=== PATIENT | female | born 1995 | race Caucasian/White ===

== ENCOUNTER → 2017-07-02 | Outpatient (CLI) | payer OTHER ==
[~2017-07-02] MED LIST: INFL1INJ56 IM; NITR100C4 PO; Prenatal vitamin
== END ==
LOC: HPND 09:16
PROVIDERS: ATTEND Family Medicine
DX: Z34.90 Encounter for supervision of normal pregnancy, unspecified, unspecified trimester (principal)
CPT/HCPCS: 76801

== ENCOUNTER → 2017-08-06 | Outpatient (CLI) | payer OTHER ==
[~2017-08-06] MED LIST changes: -INFL1INJ56 IM; -NITR100C4 PO
== END ==
LOC: HPND 09:05
PROVIDERS: ATTEND Family Medicine
DX: Z36.9 Encounter for antenatal screening, unspecified (principal)
CPT/HCPCS: 76805

== ENCOUNTER 2017-12-20 08:58 | Inpatient (IN) | payer OTHER, MEDICAID ==
[2017-12-20] VITALS (52 sets, daily range): BP systolic 85–136; BP diastolic 53–86; PULSE 69–126; RESP 16; TEMP 98.4
[~2017-12-20] VITALS: Ht 149.9 cm; Wt 62.0 kg
[~2017-12-20 08:58] MED LIST changes: +MACR100C2 PO
--- NOTE | 2017-12-20 09:37 | PD ---
HPI Chief Complaint contractions Date Seen: Dec 20, 2017 Time Seen: 09:20 Travel History International Travel<30 Days: No Contact w/Intl Traveler<30Days: No History of Present Illness HPI 22 y/o G1 at 38/1 weeks presents with contractions. Pt states that she started having contractions this morning around 5 am. Denies any gush of fluids, vaginal bleeding. Endorses good movement. Follows in clinic with Dr. Naomie Ozuna. No problems during this . Otherwise, denies any other symptoms, including headache, blurry vision, chest pain, SOB, dysuria, leg pain/swelling. Weeks Gestation: 38 Para: 0 : 1 History Past Medical History Medical History: Denies Significant Hx Obstetric History Obstetric History Past Surgical History Narrative Surgical Appendectomy Family History Family History: Negative Social History Alcohol Use: No Tobacco Use: No Substance Abuse: No Allergies-Medications (Allergen,Severity, Reaction): Coded Allergies: No Known Allergies (Unverified Adverse Reaction, Unknown, 11/03/17) Home Meds Reported Medications [ vitamin] No Conflict Check 06/19/17 Discontinued Scripts Nitrofurantoin Monohydrate Macrocrystals (Macrobid) 100 Mg Cap, 100 MG PO BID for Infection, #14 CAP 0 Refills Prov:Naomie Ozuna MD 10/22/17 Review of Systems General / Constitutional: Weight Gain, No: Fever, Weight Loss, Chills, Other Eyes: No: Diploplia, Blurred Vision, Visual changes, Pain, Photophobia HENT: No: Headaches, Vertigo, Lightheadedness Cardiovascular: No: Irregular Rhythm, Chest Pain or Discomfort, Palpitations, Tachycardia, Syncope, Varicosities, Edema, Cyanosis Respiratory: No: Cough, Short of Breath, Other Gastrointestinal: No: Nausea, Vomiting, Diarrhea Genitourinary: Pelvic Pain, No: Urgency, Frequency, Dysuria, Decreased Urinary Output, Oliguria Musculoskeletal: No: Limited ROM, Weakness, Cramping, Edema, Pain Skin: No Rash, No Itching, No Dryness, No Lumps, No Change in Pigmentation, No Change in Nails, No Alopecia, No Lesions Neurologic: No: Weakness, Dizziness, Syncope, Focal Abnormalities, Coordination Problem, Headache, Slurred Speech, Seizures Psychiatric: No: Depression, Suicidal Ideations, Homicidal Ideation Endocrine: No: Heat Intolerance, Cold Intolerance, Polydipsia, Polyuria, Other Physical Exam Narrative GENERAL: Well-nourished, well-developed patient. SKIN: Warm and dry. HEAD: Normocephalic and atraumatic. EYES: No scleral icterus. No injection or drainage. ENT: No nasal drainage noted. Mucous membranes pink. Airway patent. NECK: Supple, trachea midline. No JVD. CARDIOVASCULAR: Regular rate and rhythm without murmurs, gallops, or rubs. RESPIRATORY: Breath sounds equal bilaterally. No accessory muscle use. ABDOMEN/GI: Abdomen soft, non-tender, bowel sounds present, no rebound, no guarding Gravid to 38 weeks size GENITOURINARY: External Genitalia: intact and normal in appearance Cervix: soft,stretchy Dilatation: 4-5 Effacement: 70 Station: -1 Presentation: vertex Membranes: bulging Uterine Contractions: q3-5 minutes FHT's: Category: 1 Baseline: 140 Reactive: yes Variability: moderate Decels: none EXTREMITIES: No cyanosis or edema. BACK: Nontender without obvious deformity. No CVA tenderness. NEUROLOGICAL: Awake and alert. Motor and sensory grossly within normal limits. Five out of 5 muscle strength in all muscle groups. Normal speech. Data Data Vital Signs Reviewed: Yes Group B Strep: Negative MDM Medical Record Reviewed: Yes Interpretation(s) 22 y/o G1 at 38/1 weeks presents with contractions Category 1 FHT with contractions every 3-5 minutes GBS negative Cervical exam: 4-5/70/-1 -Admit to labor and delivery -Continuous FHT -Expectant management -Plan for vaginal delivery Diagnosis Diagnosis: Primary Impression: Qualified Codes: Z3A.38 - 38 weeks gestation of Dale Chang MD Dec 20, 2017 09:37
[2017-12-20] MEDS ORDERED: LACTATED RINGER'S 1000 ML INJ 1,000 ML IV SCH (09:39)
[2017-12-20] MEDS ORDERED: LACTATED RINGER'S 1000 ML INJ 1,000 ML IV PRN (09:39)
[2017-12-20] MEDS ORDERED: LIDOCAINE HCL 1% 50 ML VIAL INFIL PRN (09:45)
[2017-12-20] MEDS ORDERED: MINERAL OIL 10 ML VIAL TOPICAL PRN (09:45)
[2017-12-20] MEDS ORDERED: CITRIC ACID-SODIUM CITRATE LIQ 30 ML UDC PO SCH (09:45)
[2017-12-20] MEDS ORDERED: ONDANSETRON HCL 4 MG/2 ML VIAL IV PUSH PRN (09:45)
[2017-12-20] MEDS ORDERED: SODIUM CHLORID 0.9% 500 ML INJ 500 ML IV PRN (09:45)
[2017-12-20] MEDS ORDERED: OXYTOCIN 30 UNITS-500ML PREMIX 500 ML IV ONE (09:45)
[2017-12-20] MEDS ORDERED: LIDOCAINE HCL 1% 50 ML VIAL I-DERMAL PRN (09:45)
--- NOTE | 2017-12-20 09:45 | HHI.HP ---
History & Physical H&P HPI Chief Complaint contractions Date Seen: Dec 20, 2017 Time Seen: 09:20 Travel History International Travel<30 Days: No Contact w/Intl Traveler<30Days: No History of Present Illness HPI 22 y/o G1 at 38/1 weeks presents with contractions. Pt states that she started having contractions this morning around 5 am. Denies any gush of fluids, vaginal bleeding. Endorses good movement. Follows in clinic with Dr. Naomie Ozuna. No problems during this . Otherwise, denies any other symptoms, including headache, blurry vision, chest pain, SOB, dysuria, leg pain/swelling. Weeks Gestation: 38 Para: 0 : 1 History (Limited) History Past Medical History Medical History: Denies Significant Hx Obstetric History Obstetric History Past Surgical History Narrative Surgical Appendectomy Family History Family History: Negative Social History Alcohol Use: No Tobacco Use: No Substance Abuse: No Allergies-Medications Allergies-Medications (Allergen,Severity, Reaction): Coded Allergies: No Known Allergies (Unverified Adverse Reaction, Unknown, 11/03/17) Home Meds Reported Medications [ vitamin] No Conflict Check 06/19/17 Discontinued Scripts Nitrofurantoin Monohydrate Macrocrystals (Macrobid) 100 Mg Cap, 100 MG PO BID for Infection, #14 CAP 0 Refills Prov:Naomie Ozuna MD 10/22/17 ROS Review of Systems General / Constitutional: Weight Gain, No: Fever, Weight Loss, Chills, Other Eyes: No: Diploplia, Blurred Vision, Visual changes, Pain, Photophobia HENT: No: Headaches, Vertigo, Lightheadedness Cardiovascular: No: Irregular Rhythm, Chest Pain or Discomfort, Palpitations, Tachycardia, Syncope, Varicosities, Edema, Cyanosis Respiratory: No: Cough, Short of Breath, Other Gastrointestinal: No: Nausea, Vomiting, Diarrhea Genitourinary: Pelvic Pain, No: Urgency, Frequency, Dysuria, Decreased Urinary Output, Oliguria Musculoskeletal: No: Limited ROM, Weakness, Cramping, Edema, Pain Skin: No Rash, No Itching, No Dryness, No Lumps, No Change in Pigmentation, No Change in Nails, No Alopecia, No Lesions Neurologic: No: Weakness, Dizziness, Syncope, Focal Abnormalities, Coordination Problem, Headache, Slurred Speech, Seizures Psychiatric: No: Depression, Suicidal Ideations, Homicidal Ideation Endocrine: No: Heat Intolerance, Cold Intolerance, Polydipsia, Polyuria, Other Physical Exam Physical Exam Narrative GENERAL: Well-nourished, well-developed patient. SKIN: Warm and dry. HEAD: Normocephalic and atraumatic. EYES: No scleral icterus. No injection or drainage. ENT: No nasal drainage noted. Mucous membranes pink. Airway patent. NECK: Supple, trachea midline. No JVD. CARDIOVASCULAR: Regular rate and rhythm without murmurs, gallops, or rubs. RESPIRATORY: Breath sounds equal bilaterally. No accessory muscle use. ABDOMEN/GI: Abdomen soft, non-tender, bowel sounds present, no rebound, no guarding Gravid to 38 weeks size GENITOURINARY: External Genitalia: intact and normal in appearance Cervix: soft,stretchy Dilatation: 4-5 Effacement: 70 Station: -1 Presentation: vertex Membranes: bulging Uterine Contractions: q3-5 minutes FHT's: Category: 1 Baseline: 140 Reactive: yes Variability: moderate Decels: none EXTREMITIES: No cyanosis or edema. BACK: Nontender without obvious deformity. No CVA tenderness. NEUROLOGICAL: Awake and alert. Motor and sensory grossly within normal limits. Five out of 5 muscle strength in all muscle groups. Normal speech. Data Data Data Vital Signs Reviewed: Yes Group B Strep: Negative MDM MDM Medical Record Reviewed: Yes Interpretation(s) 22 y/o G1 at 38/1 weeks presents with contractions Category 1 FHT with contractions every 3-5 minutes GBS negative Cervical exam: 4-5/70/-1 -Admit to labor and delivery -Continuous FHT -Expectant management -Plan for vaginal delivery Diagnosis Diagnosis: Primary Impression: Qualified Codes: Z3A.38 - 38 weeks gestation of Dale Chang MD Dec 20, 2017 09:45
[2017-12-20] MEDS ORDERED: SODIUM CHLOR 0.9% 1000 ML INJ 1,000 ML IV PRN (09:59)
[2017-12-20] MEDS ORDERED: fentaNYL 2MCG-BUPIV 0.125% INJ 100 ML ONE (10:45)
--- NOTE | 2017-12-20 10:46 | PD.LABORPN ---
Subjective Subjective Patient examined at bedside. She is an OB continuity patient, EDC 01/02/2017, at 38 and 1/7 weeks today. She has felt contractions intermittently since last night, with contractions every five minutes since around 5AM today. She wants epidural, but wants to wait a while. She presented with dilation 4-5cm, bulging back, Cat 1 tracing. Pain currently 5/10 in severity, receiving IV fentanyl. GBS negative on 12/15/2017. Plan: in labor. Category 1 tracing reassuring. CTX not appearing adequate. Will AROM and initiate Pitocin as needed for adequate contraction pattern pending lab processing. Update 1045AM: AROM with Sarina labor nurse assisting, 6 CM dilation on exam. Light meconium stain. KRISH Nunn Objective Objective Pelvic Exam: Cervix: 6/80/-1, CTX q 2-3 min FHT's: Category: 1 Baseline: 140s Reactive: y Variability: mod Decels: no Weeks Gestation: 38 Naomie Ozuna MD Dec 20, 2017 10:46
[2017-12-20 10:53] LABS: AUTOMATED NEUTROPHIL # 9.6 TH/MM3 (1.8-7.7); BASOPHIL % 0.3 % (0.0-2.0); EOSINOPHIL % 0.4 % (0.0-4.0); HEMOGLOBIN 13.5 GM/DL (11.6-15.3); LYMPH % 9.1 % (9.0-44.0); MEAN CELL VOLUME 92.7 FL (80.0-100.0); MEAN CORPUSCULAR HEMOGLOBIN 32.2 PG (27.0-34.0); MEAN CORPUSCULAR HGB CONC 34.7 % (32.0-36.0); MEAN PLATELET VOLUME 8.6 FL (7.0-11.0); MONO % 6.5 % (0.0-8.0); MONOCYTE # 0.7 TH/MM3 (0-0.9); NEUT % 83.7 % (16.0-70.0); PLATELET COUNT 187 TH/MM3 (150-450); RED BLOOD COUNT 4.21 MIL/MM3 (4.00-5.30); RED CELL DISTRIBUTION WIDTH 13.4 % (11.6-17.2); WHITE BLOOD COUNT 11.4 TH/MM3 (4.0-11.0)
[2017-12-20] MEDS ORDERED: ePHEDrine/NS 25 MG/5 ML SYRINGE ONE (10:53)
[2017-12-20 11:01] LABS: BILIRUBIN, URINE NEG (NEG); BLOOD, URINE MOD (NEG); GLUCOSE,URINE NEG (NEG); KETONE, URINE NEG (NEG); MUCUS URINE FEW /lpf (OCC); NITRITE,URINE NEG (NEG); PH, URINE 7.5 (5.0-8.5); SQUAMOUS EPITHELIAL CELL URINE 4 /hpf (0-5); URINE COLOR YELLOW (YELLW/STRAW); URINE LEUKOCYTE ESTERASE SMALL (NEG)
[2017-12-20] MEDS ORDERED: LIDOCAINE HCL 1% 20 ML VIAL ONE ×2 (13:55→15:18)
--- NOTE | 2017-12-20 14:23 | PD.LABORPN ---
Subjective Subjective Patient examined at bedside. Epidural controlling pain well. Cervical exam now showing 9cm/100%/-1. Category 1 tracing. GBS negative on 12/15/2017. Repositioned to left lateral decubitus position, tolerating well. VS wnl. Plan: in labor, now in active phase. Continue expectant management of vaginal delivery. AROM @ 1036 with light meconium stain. Category 1 tracing reassuring. CTX adequate. DW Sarina, labor nurse Objective Vital Signs Vital Signs Date Time Temp Pulse Resp B/P (MAP) Pulse Ox O2 Delivery O2 Flow Rate FiO2 12/20/17 13:38 16 12/20/17 13:35 73 12/20/17 13:30 75 111/73 (86) 12/20/17 13:20 75 12/20/17 13:15 69 12/20/17 13:15 111/72 (85) 12/20/17 13:10 72 12/20/17 13:05 77 12/20/17 13:00 75 109/68 (82) 12/20/17 12:55 75 12/20/17 12:50 77 12/20/17 12:45 82 106/67 (80) 12/20/17 12:40 77 12/20/17 12:35 72 12/20/17 12:30 86 110/75 (87) 12/20/17 12:20 80 12/20/17 12:15 85 116/72 (87) 12/20/17 12:10 79 12/20/17 12:05 92 12/20/17 12:00 82 116/72 (87) 12/20/17 11:50 82 12/20/17 11:45 84 12/20/17 11:45 119/71 (87) 12/20/17 11:40 118/81 (93) 12/20/17 11:40 87 12/20/17 11:35 80 113/73 (86) 12/20/17 11:30 83 123/70 (87) 12/20/17 11:28 16 12/20/17 11:28 98.4 12/20/17 11:25 121/74 (90) 12/20/17 11:25 79 12/20/17 11:22 89 128/75 (92) 12/20/17 11:21 93 131/65 (87) 12/20/17 11:20 91 12/20/17 11:17 95 136/85 (102) 12/20/17 10:30 16 Objective Pelvic Exam: Cervix: 9/100/0, CTX q 2-3 min FHT's: Category: 1 Baseline: 120s Reactive: y Variability: mod Decels: no Weeks Gestation: 38 Assessment/Plan Problem List: (1) with 38 completed weeks gestation ICD Codes: Z3A.38 - 38 weeks gestation of Naomie Ozuna MD Dec 20, 2017 14:23
[2017-12-20] MEDS ORDERED: BENZOCAINE 20% TOPICAL SPRAY 60 ML CAN TOPICAL PRN (16:00)
[2017-12-20] MEDS ORDERED: oxyCODONE/ACETAMINOPHEN 5 MG/325 MG TAB PO PRN ×2 (16:00)
[2017-12-20] MEDS ORDERED: ONDANSETRON ODT 4 MG TAB PO PRN (16:00)
[2017-12-20] MEDS ORDERED: SODIUM CHLORIDE 0.9% FLUSH 10 ML FLUSH IV FLUSH PRN (16:00)
[2017-12-20] MEDS ORDERED: OXYTOCIN 30 UNITS-500ML PREMIX 500 ML IV SCH (16:00)
[2017-12-20] MEDS ORDERED: DIPHTH/TETANUS/ACEL PERTUSSIS (BOOSTER) 0.5 ML VIAL/PFS IM ONE (16:00)
[2017-12-20] MEDS ORDERED: WITCH HAZEL 50%/GLYCERIN 12.5% 40 PAD JAR TOPICAL PRN (16:00)
[2017-12-20] MEDS ORDERED: ACETAMINOPHEN 325 MG TAB PO PRN (16:00)
[2017-12-20] MEDS ORDERED: MEASLES, MUMPS, RUBELLA VACCINE 0.5 ML VIAL SQ ONE (16:00)
[2017-12-20] MEDS ORDERED: ALUMINUM/MAGNESIUM/SIMETH 30 ML CUP PO PRN (16:00)
[2017-12-20] MEDS ORDERED: ZOLPIDEM TARTRATE 5 MG TAB PO PRN (16:00)
[2017-12-20] MEDS ORDERED: DOCUSATE SODIUM 50 MG/SENNA 8.6 MG TAB PO PRN (16:00)
--- NOTE | 2017-12-20 16:10 | PD.OB.DELI ---
Weeks gestation: 38 Pt started active labor?: Yes Active labor start date: Dec 20, 2017 Active labor start time: 11:30 Medical induction of labor?: No Artificial rupture of membrane: Yes Artificial ROM date: Dec 20, 2017 Artifical ROM time: 10:36 Anesthesia: Epidural Episiotomy: None Vaginal Delivery: Normal, Spontaneous Presentation: Occiput anterior Nuchal Cord: None Delayed cord clamping (45 sec): Yes Infant: Male Delivery date: Dec 20, 2017 Delivery time: 15:16 One Minute : 8 Five Minute : 9 Weight: delayed Placenta: Spontaneous delivery Laceration: Vaginal laceration, Perineal laceration, 2 deg Repair: Chromic interrupted, Chromic running Estimated blood loss: 250 Additional Information Patient is a 22 female who delivered by Normal spontaneous vaginal delivery , of live male intact, position CASSY over intact perineum with epidural anesthesia. No nuchal cord. Light meconium noted at AROM. Suction of infant at perineum and infant handed over to nursery staff after delayed cord clamping. Spontaneous delivery of placenta with 3-vessel cord within 15 minutes. Laceration of 2nd,degree vaginal and chacorta-urethral locations repaired using chromic suture. Estimated blood loss 250cc. Infant and mother doing well. Delayed weighing of due to [id number] initiative. Attending Dr. Nunn was present for entire delivery. Naomie Ozuna MD Dec 20, 2017 16:10
[2017-12-21] MEDS: IBUPROFEN 800 MG TAB PO PRN ×3 (01:43→17:54)
[2017-12-21 07:48] VITALS: BP 109/62; PULSE 83; RESP 16; TEMP 98.1
[2017-12-21] MEDS: SODIUM CHLORIDE 0.9% FLUSH 10 ML FLUSH IV FLUSH SCH ×2 (09:06→21:00)
--- NOTE | 2017-12-21 09:21 | HHI.OB ---
Subjective Post Day: 1 Remarks day #1 AFVSS overnight. Decreased lochia. Denies dysuria. No breast tenderness. She is feeding the baby via bottle. Appetite good. No nausea or vomiting. Ambulating well. Denies calf pain or shortness of breath. Otherwise, she is doing well this morning and has no other complaints. Objective Vitals/I&O Vital Signs Date Time Temp Pulse Resp B/P (MAP) Pulse Ox O2 Delivery O2 Flow Rate FiO2 12/21/17 07:48 98.1 83 16 109/62 (78) 12/20/17 16:45 95 110/57 (74) 12/20/17 16:40 16 12/20/17 16:30 101 85/56 (66) 12/20/17 16:00 126 85/56 (66) 12/20/17 15:55 16 12/20/17 15:45 110 109/73 (85) 12/20/17 15:40 104 113/53 (73) 12/20/17 15:30 104 115/71 (86) 12/20/17 15:29 105 116/68 (84) 12/20/17 15:00 16 12/20/17 14:47 104 112/86 (95) 12/20/17 14:25 94 12/20/17 14:20 83 12/20/17 14:15 83 110/73 (85) 12/20/17 14:10 77 12/20/17 14:05 78 12/20/17 14:00 76 105/67 (80) 12/20/17 13:55 74 12/20/17 13:50 83 12/20/17 13:46 74 119/73 (88) 12/20/17 13:45 77 12/20/17 13:38 16 12/20/17 13:35 73 12/20/17 13:30 75 111/73 (86) 12/20/17 13:20 75 12/20/17 13:15 69 12/20/17 13:15 111/72 (85) 12/20/17 13:10 72 12/20/17 13:05 77 12/20/17 13:00 75 109/68 (82) 12/20/17 12:55 75 12/20/17 12:50 77 12/20/17 12:45 82 106/67 (80) 12/20/17 12:40 77 12/20/17 12:35 72 12/20/17 12:30 86 110/75 (87) 12/20/17 12:20 80 12/20/17 12:15 85 116/72 (87) 12/20/17 12:10 79 12/20/17 12:05 92 12/20/17 12:00 82 116/72 (87) 12/20/17 11:50 82 12/20/17 11:45 84 12/20/17 11:45 119/71 (87) 12/20/17 11:40 118/81 (93) 12/20/17 11:40 87 12/20/17 11:35 80 113/73 (86) 12/20/17 11:30 83 123/70 (87) 12/20/17 11:28 16 12/20/17 11:28 98.4 12/20/17 11:25 121/74 (90) 12/20/17 11:25 79 12/20/17 11:22 89 128/75 (92) 12/20/17 11:21 93 131/65 (87) 12/20/17 11:20 91 12/20/17 11:17 95 136/85 (102) 12/20/17 10:30 16 Objective Remarks GENERAL: Well-nourished, well-developed patient. CARDIOVASCULAR: Regular rate and rhythm without murmurs, gallops, or rubs. RESPIRATORY: Breath sounds equal bilaterally. No accessory muscle use. ABDOMEN/GI: Abdomen soft, non-tender. Fundus: Firm, non-tender at umbilicus. GENITOURINARY: Light to moderate bleeding. EXTREMITIES: No cyanosis or edema, non-tender, without signs of DVT. Medications and IVs Current Medications Medications (Trade) Dose Ordered Sig/Nick Route Start Time Stop Time Status Last Admin (NS Flush) 2 ml BID IV FLUSH 12/20/17 21:00 12/21/17 09:06 (NS Flush) 2 ml UNSCH PRN IV FLUSH 12/20/17 16:00 (Tylenol) 650 mg Q4H PRN PO 12/20/17 16:00 (Motrin) 800 mg Q8H PRN PO 12/20/17 16:00 12/21/17 09:07 (Percocet 5-325 Mg) 1 tab Q4H PRN PO 12/20/17 16:00 (Percocet 5-325 Mg) 2 tab Q4H PRN PO 12/20/17 16:00 (Americaine 20% Top Spr) 1 spray Q4H PRN TOPICAL 12/20/17 16:00 (Tucks Pads) 1 applic QID PRN TOPICAL 12/20/17 16:00 12/21/17 09:07 (Sophia-Colace) 2 tab Q12H PRN PO 12/20/17 16:00 (Ambien) 5 mg HS PRN PO 12/20/17 16:00 (Mag-Al Plus Susp Liq) 15 ml Q8H PRN PO 12/20/17 16:00 (Zofran Odt) 4 mg Q6H PRN PO 12/20/17 16:00 Assessment/Plan Problem List: (1) with 38 completed weeks gestation ICD Codes: Z3A.38 - 38 weeks gestation of Assessment and Plan 22y/o female who is PPD#1 s/p . -Continue routine care. -Motrin PRN pain. -Encouraged OOB. Advised pelvic rest for 6 wks. -Re: ctrl, she is currently considering options with her , would like to discuss further with her primary care provider. -D/c likely tomorrow. KRISH Powell,Sukhwinder Garcia MD R1 Dec 21, 2017 09:21
[2017-12-21 20:20] VITALS: TEMP 98
[2017-12-22] MEDS: IBUPROFEN 800 MG TAB PO PRN ×2 (02:07→12:04)
[2017-12-22 08:00] VITALS: BP 104/60; PULSE 74; RESP 14; TEMP 98.2
[2017-12-22] MEDS ORDERED: ACET325T15 PO (08:22)
[2017-12-22] MEDS ORDERED: IBUP1TAB7 PO (08:22)
--- NOTE | 2017-12-22 08:24 | HHI.DCPOC ---
Discharge Care Plan Diagnosis: (1) with 38 completed weeks gestation (2) Vaginal delivery Report Symptoms to Your Doctor -Temperature above 100.5 degrees -Redness, of incision or excessive or foul smelling drainage -Unusual pain or calf pain -Increased vaginal bleeding -Painful or difficulty urinating -Feelings of extreme sadness or anxiety after 2 weeks Goals to Promote Your Health * To prevent worsening of your condition and complications * To maintain your health at the optimal level Directions to Meet Your Goals Take your medications as prescribed Follow your dietary instruction Follow activity as directed Ensure plenty of rest for recovery Drink fluids for hydration Keep your appointments as scheduled Take your immunizations and boosters as scheduled If your symptoms worsen call your PCP, if no PCP go to Urgent Care Center or Emergency Room Smoking is Dangerous to Your Health. Avoid second hand smoke Call the 24-hour crisis hotline for domestic abuse at Naomie Ozuna MD Dec 22, 2017 08:24
--- NOTE | 2017-12-22 08:27 | HHI.OB ---
Subjective Post Day: 2 Remarks day #2. AFVSS overnight. Decreased lochia. Denies dysuria. No breast tenderness. She is feeding the baby via BREAST ONLY. Appetite good. No nausea or vomiting. Ambulating well. Denies calf pain or shortness of breath. Otherwise , she is doing well this morning and has no other complaints. Objective Vitals/I&O Vital Signs Date Time Temp Pulse Resp B/P (MAP) Pulse Ox O2 Delivery O2 Flow Rate FiO2 12/21/17 20:20 98.0 Objective Remarks GENERAL: Well-nourished, well-developed patient. CARDIOVASCULAR: Regular rate and rhythm without murmurs, gallops, or rubs. RESPIRATORY: Breath sounds equal bilaterally. No accessory muscle use. ABDOMEN/GI: Abdomen soft, non-tender. Fundus: Firm, non-tender at umbilicus. GENITOURINARY: Light to moderate bleeding. EXTREMITIES: No cyanosis or edema, non-tender, without signs of DVT. Medications and IVs Current Medications Medications (Trade) Dose Ordered Sig/Nick Route Start Time Stop Time Status Last Admin (NS Flush) 2 ml BID IV FLUSH 12/20/17 21:00 12/21/17 09:06 (NS Flush) 2 ml UNSCH PRN IV FLUSH 12/20/17 16:00 (Tylenol) 650 mg Q4H PRN PO 12/20/17 16:00 (Motrin) 800 mg Q8H PRN PO 12/20/17 16:00 12/22/17 02:07 (Percocet 5-325 Mg) 1 tab Q4H PRN PO 12/20/17 16:00 (Percocet 5-325 Mg) 2 tab Q4H PRN PO 12/20/17 16:00 (Americaine 20% Top Spr) 1 spray Q4H PRN TOPICAL 12/20/17 16:00 (Tucks Pads) 1 applic QID PRN TOPICAL 12/20/17 16:00 12/21/17 09:07 (Sophia-Colace) 2 tab Q12H PRN PO 12/20/17 16:00 12/21/17 17:54 (Ambien) 5 mg HS PRN PO 12/20/17 16:00 (Mag-Al Plus Susp Liq) 15 ml Q8H PRN PO 12/20/17 16:00 (Zofran Odt) 4 mg Q6H PRN PO 12/20/17 16:00 Assessment/Plan Problem List: (1) with 38 completed weeks gestation ICD Codes: Z3A.38 - 38 weeks gestation of Assessment and Plan 22y/o female who is PPD#2 s/p . -Continue routine care. -Motrin PRN pain. -Encouraged OOB. Advised pelvic rest for 6 wks. -Re: ctrl, she plans on using control pills. Does not want Depo, IUD , or implant. -D/c today with 6 week follow up to be scheduled with Naomie Ozuna (PCP). KRISH Ozuna,Naomie Mcmullen MD Dec 22, 2017 08:27
== END 2017-12-22 16:06 | disposition home or self-care (01) | DRG 775 ==
LOC: HOBED 08:58 → H2EB 09:39 → H1EA 17:42
PROVIDERS: ADMIT Obstetrics & Gynecology Obstetrics; ATTEND Obstetrics & Gynecology Obstetrics
PROC: 10E0XZZ Delivery of Products of Conception, External Approach (ICD-10-PCS; principal; 2017-12-20)
PROC: 0KQM0ZZ Repair Perineum Muscle, Open Approach (ICD-10-PCS; 2017-12-20)
PROC: 10907ZC Drainage of Amniotic Fluid, Therapeutic from Products of Conception, Via Natural or Artificial Opening (ICD-10-PCS; 2017-12-20)
PROC: 3E0R3BZ Introduction of Anesthetic Agent into Spinal Canal, Percutaneous Approach (ICD-10-PCS; 2017-12-20)
PROC: 00HU33Z Insertion of Infusion Device into Spinal Canal, Percutaneous Approach (ICD-10-PCS; 2017-12-20)
DX: O70.1 Second degree perineal laceration during delivery (principal); Z37.0 Single live birth; Z3A.38 38 weeks gestation of pregnancy
CPT/HCPCS: 80307; 81001; 85025; 86900; 86901; 90715; G0481